=== PATIENT | female | born 1965 | race Caucasian/White ===

== ENCOUNTER → 2017-10-08 | Outpatient (CLI) | payer OTHER ==
--- NOTE | 2017-10-08 09:21 | RAD ---
Examination: Right wrist, three views History: Ganglion cyst Comparison reference 07/18/2016 Findings: There is a localized soft tissue prominence over the dorsum of the wrist. No acute fracture or bone destruction identified. Degenerative cystic areas are noted within several of the carpal bon es and there is marked radiocarpal joint narrowing. There is osteoarthritis at the 1st [facility] joint. Impression: Degenerative changes/osteoarthritis. Dorsal soft tissue prominence consistent with the cl inical history of ganglion cyst. The Reported By:
== END ==
LOC: RAD 08:56
PROVIDERS: ATTEND Obstetrics & Gynecology Obstetrics
DX: M67.431 Ganglion, right wrist (principal)
CPT/HCPCS: 73100

== ENCOUNTER → 2018-01-19 | Outpatient (CLI) | payer OTHER ==
--- NOTE | 2018-01-20 08:19 | MRI ---
Indication: Right wrist pain and stiffness Exam: MRI right wrist without contrast. Technique: Routine multiplanar multisequence imaging was performed through the right wrist without co ntrast. Findings: The distal radius and ulna are intact. There is moderate narrowing of the radiocarpal joint . The distal radius is intact . There is some mild increased signal bone marrow along the distal rad ius extending to the articular surface laterally . There is mild increased signal in the bone marrow throughout the scaphoid bone with no obvious fracture seen . No obvious dislocation is seen . There i s a tiny amount of fluid in the radiocarpal joint extending medially along the ulna and proximal comp artment . The triangular fibrocartilage appears intact and normal signal intensity. The carpal tunnel is unremarkable. The surrounding tendons and ligaments are intact. There is prominent widening of th e scapholunate space with the ligament not well delineated . There is minimal increased signal along the proximal pole of the capitate . 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 Recommend orthopedic follow-up and stress views to further evaluate the ligament . Moderate osteoarthritic changes along the radiocarpal joint with increased signal in the bone marrow along the distal radius which probably represents reactive edema with no acute fracture . Abnormal bone marrow edema throughout the scaphoid bone which is suspicious for reactive , stress rel ated, edema from osteoarthritis or less likely bony contusion or early AVN. No fracture is seen. Dez mmend orthopedic follow-up. Mildly increased signal along the proximal pole of the capitate bone which could be due to a contusio n or subchondral cystic or erosive changes with no obvious fracture. Small effusion in the radiocarpal joint space extending medially. Reported By:
== END ==
LOC: RAD 10:30
PROVIDERS: ATTEND Orthopaedic Surgery
DX: M19.031 Primary osteoarthritis, right wrist (principal); M25.431 Effusion, right wrist
CPT/HCPCS: 73221